=== PATIENT | female | born 1945 | race African-American/Black ===

== ENCOUNTER 2024-02-23 15:19 | Inpatient (IN) | payer OTHER, BC ==
[2024-02-23 16:08] LABS: EOS % 2.6 % (0-4.5); HEMATOCRIT 37.3 % (32.4-45.2); HEMOGLOBIN 11.9 GM/dL (10.7-15.3); LYMPH % 37.1 % (8-40); MCH 31.2 pg (25.7-33.7); MEAN CELL VOLUME 97.7 fl (80-96); MEAN PLT VOLUME 13.3 fl (7.5-11.1); MONO % 14.7 % (3.8-10.2); NEUT % 44.6 % (42.8-82.8); PLATELET COUNT 144 10^3/uL (134-434); RBC 3.82 M/mm3 (3.60-5.2); WHITE BLOOD COUNT 7.4 K/mm3 (4.0-10.0)
[2024-02-23 16:16] LABS: INR 1.03 (0.83-1.09); PROTHROMBIN TIME (PATIENT) 11.8 SEC (9.7-13.0)
[2024-02-23 16:19] LABS: ACTIVATED PTT 27.3 SECONDS (25.2-36.5)
[2024-02-23 16:32] LABS: POTASSIUM 4.9 mmol/L (3.5-5.1)
[2024-02-23 16:34] LABS: CALCIUM 9.4 mg/dL (8.5-10.1)
[2024-02-23 16:35] LABS: ALBUMIN 3.2 g/dl (3.4-5.0)
[2024-02-23 16:38] LABS: CREATININE 0.8 mg/dL (0.55-1.3)
[2024-02-23 16:40] LABS: TOT PROT 6.6 g/dl (6.4-8.2)
[2024-02-23 16:41] LABS: BILIRUBIN,TOTAL 0.4 mg/dL (0.2-1)
[2024-02-23] MEDS ORDERED: HEPARIN NA (PORCINE) 5,000 UNITS/ML 1ML VIAL ONE ×2 (16:45→17:42)
[2024-02-23] MEDS ORDERED: HEPARIN INFUSION - 25,000 UNITS/500 ML INFUS.BAG IVPB ONE (16:46)
[2024-02-23] MEDS ORDERED: DEXAMETHASONE SOD PHOSPHATE 4 MG/1 ML VIAL ONE (17:04)
[2024-02-23] MEDS ORDERED: ONDANSETRON 4 MG/2 ML VIAL ONE (17:04)
[2024-02-23] MEDS ORDERED: ceFAZolin SODIUM 1 GM VIAL ONE (17:04)
[2024-02-23] MEDS ORDERED: SODIUM CHLORIDE 0.9% P/F 10 ML VIAL IJ ONE (17:04)
[2024-02-23] MEDS ORDERED: METOCLOPRAMIDE HCL INJECTION 10 MG/2 ML VIAL ONE (17:04)
[2024-02-23] MEDS ORDERED: ACETAMINOPHEN INJECTION 100 ML IVPB ONE (17:16)
[2024-02-23] MEDS: HEPARIN NA (PORCINE) 5,000 UNITS/ML 1ML VIAL IVPUSH ONE (17:34)
[2024-02-23] MEDS: HEPARIN INFUSION - 25,000 UNITS/500 ML INFUS.BAG IVPB SCH ×2 (17:34→21:15)
[2024-02-23] MEDS ORDERED: PAPAVERINE HCL 30 MG/1 ML 10 ML VIAL NR ONE (17:42)
[2024-02-23] MEDS ORDERED: LIDOCAINE HCL 1%, 10 MG/ML (20ML VIAL) ONE (17:42)
[2024-02-23] MEDS ORDERED: ONDANSETRON 4 MG/2 ML VIAL IVPUSH PRN ×2 (17:44→20:09)
[2024-02-23] MEDS ORDERED: LACTATED RINGERS SOLUTION 1,000 ML IV SCH ×2 (17:45→20:09)
[2024-02-23] MEDS ORDERED: PROPOFOL 20 ML ONE ×2 (17:52→18:37)
[2024-02-23] MEDS ORDERED: MIDAZOLAM HCL 2 MG/2 ML SINGLE DOSE VIAL ONE (17:52)
[2024-02-23] MEDS: LACTATED RINGERS SOLUTION 1,000 ML/1,000 ML INFUS.BAG IV SCH (18:11)
[2024-02-23] MEDS: ceFAZolin SODIUM 1 GM VIAL IVPB ONE ×2 (18:22)
[2024-02-23] MEDS ORDERED: LIDOCAINE HCL/PF 2% SDV 5ML VIAL ONE (18:25)
[2024-02-23] MEDS: LIDOCAINE HCL 1%, 10 MG/ML (20ML VIAL) NR ONE (18:45)
[2024-02-23] MEDS ORDERED: LABETALOL HCL 20 MG/4 ML VIAL ONE (19:22)
[2024-02-23] MEDS ORDERED: oxyCODONE HCL 5 MG TABLET PO PRN (20:09)
[2024-02-23] MEDS: DOCUSATE SODIUM 100 MG CAPSULE (FP) PO SCH (22:15)
[2024-02-23 23:46] VITALS: BMI 29.9
[2024-02-24] MEDS ORDERED: ACETAMINOPHEN 500 MG TABLET (FP) PO PRN (01:00)
[2024-02-24 07:36] LABS: HEMATOCRIT 36.4 % (32.4-45.2); HEMOGLOBIN 11.9 GM/dL (10.7-15.3); MCH 31.1 pg (25.7-33.7); MCHC 32.7 g/dl (32.0-36.0); MEAN CELL VOLUME 95.3 fl (80-96); MEAN PLT VOLUME 13.1 fl (7.5-11.1); PLATELET COUNT 114 10^3/uL (134-434); RBC 3.82 M/mm3 (3.60-5.2); RDW 14.2 % (11.6-15.6); WHITE BLOOD COUNT 11.2 K/mm3 (4.0-10.0)
[2024-02-24 08:50] VITALS: RESP 18; TEMP 98.4
[2024-02-24 09:02] LABS: CALCIUM 8.7 mg/dL (8.5-10.1)
[2024-02-24 09:08] LABS: CREATININE 0.7 mg/dL (0.55-1.3)
[2024-02-24] MEDS: amLODIPine BESYLATE 5 MG TABLET (FP) PO SCH (09:10)
[2024-02-24 09:22] LABS: ANISOCYTOSIS 0; HELMET CELLS 0; HOWELL-JOLLY BODIES 0; MACROCYTOSIS 0; OVALOCYTE 0; ROULEAU 0; SICKELED CELLS 0; TARGET CELLS 0; TEAR DROP CELLS 0; TOXIC GRANULATION 0
[2024-02-24] MEDS ORDERED: amLODIPine BESYLATE 5 MG TABLET (FP) PO SCH (10:00)
[2024-02-24] MEDS: APIXABAN 5 MG TABLET PO SCH (12:38)
[2024-02-24 12:56] VITALS: BP 183/64; PULSE 95
[2024-02-24] MEDS: LABETALOL HCL 100 MG TABLET (FP) PO ONE (13:03)
== END 2024-02-24 14:38 | disposition home or self-care (01) | DRG 254 ==
LOC: JER 15:19 → JERBED 16:56 → J4S 20:38
PROVIDERS: ADMIT Internal Medicine; ATTEND Internal Medicine
PROC: 03C70ZZ Extirpation of Matter from Right Brachial Artery, Open Approach (ICD-10-PCS; principal; 2024-02-23 17:30)
DX: I74.2 Embolism and thrombosis of arteries of the upper extremities (principal); M79.641 Pain in right hand; I10 Essential (primary) hypertension; R20.9 Unspecified disturbances of skin sensation; K29.50 Unspecified chronic gastritis without bleeding; E04.2 Nontoxic multinodular goiter; I16.0 Hypertensive urgency
CPT/HCPCS: 36415; 70450-TC; 71260-TC; 80048; 80053; 80061; 82550; 82962; 83036; 84484; 85025; 85610; 85730; 86850; 86900; 86901; 88304-TC; 93005; 93010; 94760; 99285-25; C1757; J0131; J1644; Q9967